=== PATIENT | male | born 1960 | race Caucasian/White ===

== ENCOUNTER 2020-06-11 14:19 | Emergency (ER) | payer OTHER ==
[2020-06-12] MEDS ORDERED: NALOXONE HCL 1MG/ML 2ML SYRINGE ONE (02:46)
[2020-06-12] MEDS ORDERED: ONDANSETRON HCL 4 MG/2 ML VIAL ONE (02:49)
[2020-06-12] MEDS ORDERED: ETOMIDATE (2MG/ML) 20ML VIAL IV ONE (02:50)
[2020-06-12] MEDS ORDERED: SUCCINYLCHOLINE CHLORIDE 20 MG/ML 10ML VIAL IV ONE (02:51)
== END 2020-06-11 14:56 | disposition expired ==
LOC: EDBD 14:19 → ER 14:19
DX: I46.9 Cardiac arrest, cause unspecified (principal); J96.01 Acute respiratory failure with hypoxia
CPT/HCPCS: 92950; J0330; J2405